=== PATIENT | male | born 1950 | race Caucasian/White ===

== ENCOUNTER 2023-03-11 14:55 | Emergency (ER) | payer OTHER ==
[2023-03-11] MEDS ORDERED: Sodium Chloride 0.9% 10 ML Syringe FLUSH PRN (15:39)
[2023-03-11] MEDS ORDERED: Aspirin 81 MG Tab.Chew PO ONE (15:39)
[2023-03-11] MEDS ORDERED: Metoprolol Tartrate 25 MG Tab PO ONE (15:40)
[2023-03-11 16:04] LABS: BASOPHILS ABSOLUTE AUTO 0.09 K/mm3 (0.01-0.08); BASOPHILS PERCENT AUTO 0.9 % (0.1-1.2); EOSINOPHILS ABSOLUTE AUTO 0.37 K/mm3 (0.04-0.54); EOSINOPHILS PERCENT AUTO 3.8 (0.8-7.0); HEMATOCRIT 56.5 % (40.1-51.0); HEMOGLOBIN 19.4 gm/dl (13.7-17.5); IMMATURE GRAN ABSOLUTE AUTO 0.05 K/mm3 (0.00-0.10); IMMATURE GRAN PERCENT AUTO 0.5 % (<=1.0); LYMPHOCYTES ABSOLUTE AUTO 2.81 K/mm3 (1.32-3.57); LYMPHOCYTES PERCENT AUTO 28.5 % (21.8-53.1); MEAN CORPUSCULAR HEMOGLOBIN 30.8 pg (25.7-32.2); MEAN CORPUSCULAR HGB CONC 34.3 g/dl (32.2-35.5); MEAN CORPUSCULAR VOLUME 89.8 fl (79.0-92.2); MEAN PLATELET VOLUME 10.3 fl (9.4-12.3); MONOCYTES ABSOLUTE AUTO 0.89 K/mm3 (0.30-0.82); NEUTROPHILS ABSOLUTE AUTO 5.65 K/mm3 (1.78-5.38); NEUTROPHILS PERCENT AUTO 57.3 % (34.0-67.9); PLATELET COUNT,PLT 169 K/mm3 (163-337); RED BLOOD CELL COUNT 6.29 M/mm3 (4.63-6.08); WHITE BLOOD CELL COUNT,WBC 9.86 K/mm3 (4.23-9.07)
[2023-03-11 16:32] LABS: A/G RATIO 1.1 (1-2); ANION GAP 15.8 (5-15); BILIRUBIN TOTAL 0.6 mg/dL (0.2-1.0); CALCIUM 8.9 mg/dL (8.5-10.1); CREATININE 1.5 mg/dL (0.7-1.3); EST CRCL DRUG DOSING (CG) 42.23 mL/min; POTASSIUM,K 3.8 mEq/L (3.5-5.1); PROTEIN TOTAL,TP 7.5 g/dl (6.4-8.2)
== END 2023-03-11 18:49 | disposition home or self-care (01) ==
LOC: SUPCPDRO 14:55 → JD.ED 14:55
DX: R07.89 Other chest pain (principal); R06.02 Shortness of breath; Z88.8 Allergy status to other drugs, medicaments and biological substances; Z88.5 Allergy status to narcotic agent; Z88.0 Allergy status to penicillin
CPT/HCPCS: 36415; 71045; 80053; 84484; 85025; 93005; 99285; A9270; J3490; 93010; 99283